=== PATIENT | female | born 1950 | race Caucasian/White ===

== ENCOUNTER → 2016-10-03 | Outpatient (CLI) | payer OTHER ==
--- NOTE | 2016-10-03 13:47 | MR ---
EXAMINATION TYPE: MR cspine/lspine wo con DATE OF EXAM: 10/03/2016 COMPARISON: NONE HISTORY: 66-year-old female with neck and low back pain. Cervicalgia lumbago TECHNIQUE: Multiplanar, multisequence imaging of the cervical followed by the lumbar spine is perform ed without IV contrast. FINDINGS: CERVICAL SPINE: No craniocervical junction abnormality, predental space widening, or prevertebral soft tissue swellin g. No suspicious bone marrow replacement. There is reversal of the normal cervical lordosis with a multilevel uncovertebral joint and facet deg enerative changes especially in the mid to lower cervical spine. Multilevel ligamentum flavum thickening is also noted. There is advanced disc/endplate degenerative change at C5-C6 and C6-C7 with disc height loss, endplat e irregularity, Modic type III sclerotic endplate change, disc osteophyte complex formation. There is grade 1 retrolisthesis at both C5-C6 and C6-C7. At C2-C3, minimal posterior bulging disc and mild facet arthropathy without canal or foraminal stenos is. At C3-C4, there is facet arthropathy and minimal posterior disc bulge without significant canal or fo raminal stenosis. At C4-C5, mild facet degenerative change without significant canal or foraminal stenosis. At C5-C6, there is grade 1 retrolisthesis with broad-based disc osteophyte complex contiguous with un covertebral joint arthropathy. Bilateral facet arthropathy and ligamentum flavum thickening is also p resent. Changes result in moderate spinal canal stenosis with abutment of both the dorsal and ventral cord and ventral cord indentation. There is moderate to severe left neuroforaminal stenosis. At C6-C7, similar changes are present with moderate left and mild right neuroforaminal stenosis is mo derate spinal canal stenosis with abutment of both the dorsal and ventral cord. At C7-T1, broad-based posterior disc bulge with facet arthropathy. No significant canal or foraminal stenosis. At T1-T2, and this posterior disc bulge with facet arthropathy. Additional ligamentum flavum thickeni ng. There is mild to moderate narrowing of the spinal canal. No significant cord abutment or cord def ormation. There is moderate right greater than left neuroforaminal stenosis. Tiny subcentimeter T2 hyperintense nodule within the left thyroid lobe. No prevertebral or paraverteb ral soft tissue abnormality seen. LUMBAR SPINE: Gentle degenerated rightward curvature. Vertebral body heights are preserved and alignment is maintai patricia. Moderately advanced disc/endplate degenerative change particularly from L3 through S1 levels with a s ome edematous Modic type I endplate change noted. Bulging disks at multiple levels. No suspicious bone marrow replacement. Hypertrophic facet arthropathy mid to lower lumbar spine with ligamentum flavum thickening. Conus medullaris is normal. Multilocular cyst measuring 1.9 cm incidentally seen within the mid liver. At T12-L1, no spinal canal or neural foraminal stenosis. At L1-L2, the spinal canal or neural foraminal stenosis. At L2-L3, there is broad-based disc bulge with a ligamentum flavum thickening causing mild spinal can al stenosis and mild bilateral neuroforaminal stenosis. At L3-L4, there is diffuse disc bulge with hypertrophic facet arthropathy and ligamentum flavum thick ening. Changes result in mild spinal canal stenosis, and left lateral recess stenosis. There may be i mpingement of the traversing left L4 nerve root. Additional moderate left and [id number] right neuroforaminal stenosis. At L4-L5, there is large broad-based disc protrusion, hypertrophic facet arthropathy, and marked liga mentum flavum thickening. Changes result in severe spinal canal stenosis with moderate bilateral neur oforaminal stenosis. Bilateral lateral recess stenosis probably impinging both traversing L5 nerve ro ots. At L5-S1, there is bulging disc with right lateral disc osteophyte complex. Facet arthropathy with li gamentum flavum thickening. No significant spinal canal stenosis. There is a severe right and mild-to -moderate left neuroforaminal stenosis. Lateral disc osteophyte complex may impinge the extraforamina l right L5 nerve root as well. There is lateral recess stenosis with abutment of the traversing right S1 nerve root. COMBINED IMPRESSION: CERVICAL SPINE: 1. MODERATE TO ADVANCED SPONDYLOTIC CHANGE PARTICULARLY AT C5-C6 AND C6-C7 WHERE THERE IS ADDITIONAL LIGAMENTUM FLAVUM THICKENING AND GRADE 1 RETROLISTHESES CAUSING MODERATE SPINAL CANAL STENOSES. THERE IS ABUTMENT OF BOTH THE DORSAL AND VENTRAL CORD AT THESE LEVELS WITH PROMINENT VENTRAL CORD INDENTAT ION AT C5-C6 BUT NO [place] CORD COMPRESSION OR DISCRETE MYELOPATHIC CORD SIGNAL CHANGE. 2. AT C5-C6, CHANGES RESULT IN MODERATE TO SEVERE LEFT NEUROFORAMINAL STENOSIS, MODERATE ON THE LEFT AT C6/C7. 3. DEGENERATIVE CHANGES CAUSE MILD SPINAL CANAL STENOSIS AT T1-T2 WITH MODERATE RIGHT GREATER THAN LE FT NEUROFORAMINAL STENOSIS. LUMBAR SPINE: 1. DEGENERATIVE DISC/ENDPLATE DEGENERATIVE CHANGE FROM L3 THROUGH S1 LEVELS WITH ASSOCIATED EDEMATOUS MODIC TYPE I ENDPLATE CHANGE. 2. DISC HERNIATIONS, HYPERTROPHIC FACET ARTHROPATHY, and LIGAMENTUM FLAVUM THICKENING AT THESE LEVELS WELL. THIS CONTRIBUTES TO SEVERE SPINAL CANAL STENOSIS AT L4-L5 AND MILD AT L2-L3 AND L3-L4. 3. SEVERE RIGHT NEUROFORAMINAL STENOSIS AT L5-S1, MODERATE ON THE LEFT AT L3-L4. LATERAL RECESS STENO SIS FROM L3 THROUGH S1 LEVELS. 4. RIGHT LATERAL DISC OSTEOPHYTE COMPLEX AT L5-S1 MAY IMPINGE THE EXTRAFORAMINAL RIGHT L5 NERVE ROOT.
== END | disposition home or self-care (01) ==
LOC: RADMRIMAIN 10:53
PROVIDERS: ATTEND Psychiatry & Neurology Neurology
DX: M48.06 Spinal stenosis, lumbar region (principal); M99.73 Connective tissue and disc stenosis of intervertebral foramina of lumbar region; M51.37 Other intervertebral disc degeneration, lumbosacral region; M51.26 Other intervertebral disc displacement, lumbar region; M25.78 Osteophyte, vertebrae; M46.06 Spinal enthesopathy, lumbar region; M48.02 Spinal stenosis, cervical region; M99.71 Connective tissue and disc stenosis of intervertebral foramina of cervical region; M43.12 Spondylolisthesis, cervical region; M47.812 Spondylosis without myelopathy or radiculopathy, cervical region
CPT/HCPCS: 72141; 72148

== ENCOUNTER 2016-11-18 08:58 | Day surgery (SDC) | payer MEDICARE, OTHER ==
[2016-11-17 10:53] VITALS: BMI 16.9
[~2016-11-18 08:58] MED LIST: LACTATED RINGERS 1,000 ML IV SCH
[2016-11-18 09:08] VITALS: RESP 18; TEMP 98.3
[2016-11-18] MEDS ORDERED: LIDOCAINE 1% 20 ML VIAL (10MG/ML) FOR IV START INTRADERMA ONE (09:09)
[2016-11-18] MEDS ORDERED: LACTATED RINGERS 1,000 ML IV ONE ×2 (09:09)
[2016-11-18] MEDS ORDERED: PROPOFOL 10 MG/ML 20 ML VIAL IV ONE (09:57)
--- NOTE | 2016-11-18 10:27 | P.PCN ---
Date of Procedure: 11/18/16 Preoperative Diagnosis: Postoperative Diagnosis: Procedure(s) Performed: Procedure: Esophagogastroduodenoscopy and biopsy. Preoperative diagnosis: Dysphagia and weight loss. Postoperative diagnosis: 1. No obvious esophagitis or complicated reflux disease. 2. Antral gastritis with multiple ulcers but no bleeding or gastric outlet obstruction. 3. Biopsies obtained from the duodenum, antrum and esophagus. Preparation sedation: Were provided by anesthesia. Brief clinical history: The patient is a 66-year-old female who is referred for this evaluation because of progressive dysphagia over the last year. She has history of acid reflux and on her upper endoscopy in September 2012 she had evidence of chronic esophagitis on biopsies. At that time she was having dysphagia as well and she had no obvious endoscopic abnormalities. The patient apparently has lost around 30-40 pounds over the last 3 years or so. She also indicated that she had esophageal dilations many years ago. She does have history of reflux and is maintained on Prilosec 40 mg daily. Procedure: With the patient on her left lateral decubitus position and after informed consent and adequate sedation, I passed the Olympus-GIF 160 video upper endoscope through the cricopharyngeus down the esophagus. GE junction was around 40 cm from the incisors and there was no definite hiatal hernia. The endoscope was then passed into the stomach which was insufflated with air and inspected in detail including the retroflex view in the cardia. The endoscope was then passed through the pylorus into the duodenum. Pyloric channel, duodenal bulb, post bulbar area and descending duodenum appeared within normal limits. The antrum showed mottling and erythema and there was a 1.5 cm deep ulcer along the angularis and couple other smaller ulcers in the antrum across from the angularis. No bleeding or gastric outlet obstruction. The esophagus did not show any obvious erosions, ulcers, strictures or Gutiérrez' s esophagus. I obtained biopsies from the duodenum, antrum and esophagus then the endoscope was withdrawn. No dilation was indicated. The patient tolerated the procedure well. Plan: The patient was reassured. Will await biopsy results. I would consider esophageal motility study if she continues to have issues with dysphagia in the absence of obvious finding on this exam today. I will keep you updated on her progress. She will follow-up with you as planned. Implants: Indications for Procedure: Operative Findings: Description of Procedure:
[2016-11-18 10:50] VITALS: BP 122/76; PULSE 83
== END 2016-11-18 11:07 | disposition home or self-care (01) ==
LOC: ORWHC2ENDO 08:58
DX: K29.50 Unspecified chronic gastritis without bleeding (principal); K25.9 Gastric ulcer, unspecified as acute or chronic, without hemorrhage or perforation; K21.9 Gastro-esophageal reflux disease without esophagitis; R63.4 Abnormal weight loss; M19.90 Unspecified osteoarthritis, unspecified site; F32.9 Major depressive disorder, single episode, unspecified; M48.00 Spinal stenosis, site unspecified; Z79.899 Other long term (current) drug therapy; Z79.891 Long term (current) use of opiate analgesic; Z88.0 Allergy status to penicillin; Z72.0 Tobacco use
CPT/HCPCS: 88305; 88342; 43239; J2704

== ENCOUNTER 2017-08-16 14:07 | Emergency (ER) | payer MEDICARE, OTHER ==
[2017-08-16] MEDS ORDERED: SODIUM CHLORIDE 0.9% 1,000 ML IV STA (14:33)
[2017-08-16] MEDS ORDERED: ONDANSETRON 4 MG/2 ML VIAL IVP STA (14:33)
[2017-08-16] MEDS ORDERED: RX INFO: IV CONTRAST WAS GIVEN 1 EACH MISC MISCELLANE PRN (14:33)
[2017-08-16] MEDS ORDERED: MORPHINE SULFATE 4 MG/ML SYRINGE IVP STA (14:33)
--- NOTE | 2017-08-16 14:35 | ED ---
General Adult HPI - General Chief complaint: Abdominal Pain Stated complaint: Abd Pain Time Seen by Provider: 08/16/17 14:23 Source: patient, RN notes reviewed Mode of arrival: ambulatory Limitations: no limitations - History of Present Illness Initial comments: Patient 67-year-old female who presents emergency room today with a chief complaint of abdominal pain over the last month. She does admit that she's had increased diarrhea. She states anytime she eats or drinks feels like it's going straight through her. She admits to approximately 10 episodes of diarrhea today. Patient does admit that she was diagnosed with peptic ulcer approximately a year ago. She states she does have a follow-up appointment with Dr. White coming up this next week. She states she has been expressing abdominal pain throughout abdomen. She states it's a constant sharp pain. Patient does admit that she's been under a lot of stress over the last year. She states been dealing with things at home. She does have difficult time following up with the specialist. Patient denies any other symptoms at this time. Patient denies any recent fever, chills, shortness of breath, chest pain, back pain, numbness or tingling, dysuria or hematuria, constipation, headaches or visual changes, or any other complaints. - Related Data Home Medications Medication Instructions Recorded Confirmed Cetirizine HCl [Zyrtec] 10 mg PO HS 11/17/16 11/17/16 Cholecalciferol [Vitamin D3] 5,000 unit PO DAILY 11/17/16 11/17/16 Cyanocobalamin [Vitamin B-12] 500 mcg PO DAILY 11/17/16 11/17/16 Fluticasone Propionate 1 - 2 spray EA NOSTRIL DAILY 11/17/16 11/17/16 Gabapentin [Neurontin] 600 mg PO TID 11/17/16 11/17/16 HYDROcodone/APAP 7.5-325MG [Pool 1 tab PO BID 11/17/16 11/17/16 7.5-325] Meclizine [Antivert] 25 mg PO Q6H PRN 11/17/16 11/17/16 Naproxen [Naproxen] 500 mg PO BID 11/17/16 11/17/16 Omeprazole [PriLOSEC] 40 mg PO DAILY 11/17/16 11/17/16 Potassium 595 mg PO DAILY 11/17/16 11/17/16 Venlafaxine HCl [Venlafaxine HCl] 150 mg PO DAILY 11/17/16 11/17/16 Previous Rx's Medication Instructions Recorded Ondansetron Odt [Zofran ODT] 4 mg PO Q8HR PRN #20 tab 08/16/17 Allergies Allergy/AdvReac Type Severity Reaction Status Date / Time Penicillins Allergy Itching Verified 08/16/17 14:18 Review of Systems ROS Statement: Those systems with pertinent positive or pertinent negative responses have been documented in the HPI. ROS Other: All systems not noted in ROS Statement are negative. Past Medical History Past Medical History: GERD/Reflux, Musculoskeletal Disorder, Osteoarthritis (OA) Additional Past Medical History / Comment(s): VERTIGO, SPINAL STENOSIS, MULT LEVELS, NECK & LOWER BACK; DDD. peptic ulcer History of Any Multi-Drug Resistant Organisms: None Reported Past Surgical History: Appendectomy, Orthopedic Surgery Additional Past Surgical History / Comment(s): EGD'S. COLONOSCOPY. RECONSTRUCTION JAW. JESSICA BUNIONECTOMY. TENDON REPAIR RT HAND. Past Anesthesia/Blood Transfusion Reactions: No Reported Reaction Past Psychological History: No Psychological Hx Reported Smoking Status: Current every day smoker Past Alcohol Use History: None Reported Past Drug Use History: None Reported - Past Family History Sister(s) Family Medical History: Cancer General Exam - General Exam Comments Initial Comments: General: The patient is awake and alert, in no distress, and does not appear acutely ill. Eye: Pupils are equal, round and reactive to light, extra-ocular movements are intact. No nystagmus. There is normal conjunctiva bilaterally. No signs of icterus. Ears, nose, mouth and throat: There are moist mucous membranes and no oral lesions. Neck: The neck is supple, there is no tenderness or JVD. Cardiovascular: There is a regular rate and rhythm. No murmur, rub or gallop is appreciated. Respiratory: Lungs are clear to auscultation, respirations are non-labored, breath sounds are equal. No wheezes, stridor, rales, or rhonchi. Gastrointestinal: Soft on palpation. Patient does have mild tenderness diffusely throughout all quadrants. No rebound tenderness. No guarding. No CVA tenderness. Musculoskeletal: Normal ROM, no tenderness. Strength 5/5. Sensation intact. Pulses equal bilaterally 2+. Neurological: A&O x 3. CN II-XII intact, There are no obvious motor or sensory deficits. Coordination appears grossly intact. Speech is normal. Skin: Skin is warm and dry and no rashes or lesions are noted. Psychiatric: Cooperative, appropriate mood & affect, normal judgment. Limitations: no limitations Course Vital Signs 08/16/17 08/16/17 14:15 16:31 Temperature 99.1 F Pulse Rate 110 H 106 H Respiratory 18 18 Rate Blood Pressure 156/73 134/68 O2 Sat by Pulse 100 96 Oximetry Medical Decision Making - Medical Decision Making Patient reexamined at this time shows no signs of distress she is resting comfortable. Does admit to improvement here in emergency room. Her labs been reviewed does show 14,000 white count. She has had symptoms of nausea diarrhea. Patient's hemoglobin 9.8. Remaining labs been reviewed. Patient's CT the abdomen and pelvis shows no acute abnormalities to account for the patient's symptoms. She admits that she's had some diarrhea over the last month with nausea. Unable to give stool sample here in emergency room. Denies any travel. Patient will be given a prescription for stool studies to go home with. She does have a follow-up appointment with GI specialist in 3 days. She is advised to continue her previously prescribed medication of Prilosec. Advised return for any other concerns. - Lab Data Result diagrams: 08/16/17 14:55 08/16/17 14:55 Lab Results 08/16/17 08/16/17 08/16/17 Range/Units 14:55 14:55 14:55 WBC 14.8 H (3.8-10.6) k/uL RBC 3.64 L (3.80-5.40) m/uL Hgb 9.2 L (11.4-16.0) gm/dL Hct 29.3 L (34.0-46.0) % MCV 80.4 (80.0-100.0) fL MCH 25.2 (25.0-35.0) pg MCHC 31.3 (31.0-37.0) g/dL RDW 15.7 H (11.5-15.5) % Plt Count 382 (150-450) k/uL Neutrophils % 80 % Lymphocytes % 11 % Monocytes % 5 % Eosinophils % 2 % Basophils % 1 % Neutrophils # 11.8 H (1.3-7.7) k/uL Lymphocytes # 1.7 (1.0-4.8) k/uL Monocytes # 0.8 (0-1.0) k/uL Eosinophils # 0.3 (0-0.7) k/uL Basophils # 0.1 (0-0.2) k/uL Hypochromasia Moderate PT 10.0 (9.0-12.0) sec INR 1.0 (<1.2) APTT 22.9 (22.0-30.0) sec Sodium 141 (137-145) mmol/L Potassium 4.5 (3.5-5.1) mmol/L Chloride 101 (98-107) mmol/L Carbon Dioxide 28 (22-30) mmol/L Anion Gap 12 mmol/L BUN 32 H (7-17) mg/dL Creatinine 0.80 (0.52-1.04) mg/dL Est GFR (CKD-EPI)AfAm 90 (>60 ml/min/1.73 sqM) Est GFR (CKD-EPI)NonAf 78 (>60 ml/min/1.73 sqM) Glucose 95 (74-99) mg/dL Calcium 10.5 H (8.4-10.2) mg/dL Total Bilirubin 0.2 (0.2-1.3) mg/dL AST 28 (14-36) U/L ALT 38 (9-52) U/L Alkaline Phosphatase 76 (38-126) U/L Total Protein 6.0 L (6.3-8.2) g/dL Albumin 3.8 (3.5-5.0) g/dL Amylase 40 (30-110) U/L Lipase 42 (23-300) U/L Urine Color Urine Appearance (Clear) Urine pH (5.0-8.0) Ur Specific Jayess (1.001-1.035) Urine Protein (Negative) Urine Glucose (UA) (Negative) Urine Ketones (Negative) Urine Blood (Negative) Urine Nitrite (Negative) Urine Bilirubin (Negative) Urine Urobilinogen (<2.0) mg/dL Ur Leukocyte Esterase (Negative) Urine RBC (0-5) /hpf Urine WBC (0-5) /hpf Urine Mucus (None) /hpf 08/16/17 Range/Units 15:00 WBC (3.8-10.6) k/uL RBC (3.80-5.40) m/uL Hgb (11.4-16.0) gm/dL Hct (34.0-46.0) % MCV (80.0-100.0) fL MCH (25.0-35.0) pg MCHC (31.0-37.0) g/dL RDW (11.5-15.5) % Plt Count (150-450) k/uL Neutrophils % % Lymphocytes % % Monocytes % % Eosinophils % % Basophils % % Neutrophils # (1.3-7.7) k/uL Lymphocytes # (1.0-4.8) k/uL Monocytes # (0-1.0) k/uL Eosinophils # (0-0.7) k/uL Basophils # (0-0.2) k/uL Hypochromasia PT (9.0-12.0) sec INR (<1.2) APTT (22.0-30.0) sec Sodium (137-145) mmol/L Potassium (3.5-5.1) mmol/L Chloride (98-107) mmol/L Carbon Dioxide (22-30) mmol/L Anion Gap mmol/L BUN (7-17) mg/dL Creatinine (0.52-1.04) mg/dL Est GFR (CKD-EPI)AfAm (>60 ml/min/1.73 sqM) Est GFR (CKD-EPI)NonAf (>60 ml/min/1.73 sqM) Glucose (74-99) mg/dL Calcium (8.4-10.2) mg/dL Total Bilirubin (0.2-1.3) mg/dL AST (14-36) U/L ALT (9-52) U/L Alkaline Phosphatase (38-126) U/L Total Protein (6.3-8.2) g/dL Albumin (3.5-5.0) g/dL Amylase (30-110) U/L Lipase (23-300) U/L Urine Color Light Yellow Urine Appearance Clear (Clear) Urine pH 6.0 (5.0-8.0) Ur Specific Jayess 1.013 (1.001-1.035) Urine Protein Negative (Negative) Urine Glucose (UA) Negative (Negative) Urine Ketones Negative (Negative) Urine Blood Trace H (Negative) Urine Nitrite Negative (Negative) Urine Bilirubin Negative (Negative) Urine Urobilinogen <2.0 (<2.0) mg/dL Ur Leukocyte Esterase Trace H (Negative) Urine RBC 2 (0-5) /hpf Urine WBC 2 (0-5) /hpf Urine Mucus Rare H (None) /hpf Disposition Clinical Impression: Acute diarrhea, Abdominal pain Disposition: HOME SELF-CARE Condition: Good Instructions: Abdominal Pain (ED) Additional Instructions: Please follow-up with your family doctor and GI specialist as discussed. Please have stool sample dropped at the lab to run further testing. Please return to emergency room for any other concerns. Prescriptions: Ondansetron Odt [Zofran ODT] 4 mg PO Q8HR PRN #20 tab PRN Reason: Nausea Is patient prescribed a controlled substance at d/c from ED?: No Referrals: Vicki Styles MD [Primary Care Provider] - 1-2 days Time of Disposition: 17:19
[2017-08-16 15:21] LABS: Albumin 3.8 g/dL (3.5-5.0); Calcium 10.5 mg/dL (8.4-10.2); Potassium 4.5 mmol/L (3.5-5.1); Total Bilirubin 0.2 mg/dL (0.2-1.3)
[2017-08-16 15:25] LABS: Appearance,Urine Clear (Clear); Bilirubin,Urine Negative (Negative); Blood,Urine Trace (Negative); Color,Urine Light Yellow; Glucose,Urine (UA) Negative (Negative); Ketones,Urine Negative (Negative); Leukocyte Esterase,Urine Trace (Negative); Mucus,Urine Rare /hpf; Nitrite,Urine Negative (Negative); Protein,Urine Negative (Negative); RBC,Urine 2 /hpf (0-5); Specific Gravity,Urine 1.013 (1.001-1.035); Urobilinogen,Urine <2.0 mg/dL (<2.0); WBC,Urine 2 /hpf (0-5)
[2017-08-16 15:30] LABS: Partial Thromboplastin Time 22.9 sec (22.0-30.0)
[2017-08-16 15:32] LABS: Basophils # (A) 0.1 k/uL (0-0.2); Basophils % (A) 1 %; Eosinophils # (A) 0.3 k/uL (0-0.7); Eosinophils % (A) 2 %; HCT 29.3 % (34.0-46.0); HGB 9.2 gm/dL (11.4-16.0); Hypochromasia Moderate; Lymphocytes # (A) 1.7 k/uL (1.0-4.8); Lymphocytes % (A) 11 %; MCH 25.2 pg (25.0-35.0); MCHC 31.3 g/dL (31.0-37.0); MCV 80.4 fL (80.0-100.0); Monocytes # (A) 0.8 k/uL (0-1.0); Monocytes % (A) 5 %; Neutrophils # (A) 11.8 k/uL (1.3-7.7); Neutrophils % (A) 80 %; Platelet Count 382 k/uL (150-450); RBC 3.64 m/uL (3.80-5.40); RDW 15.7 % (11.5-15.5); WBC 14.8 k/uL (3.8-10.6)
--- NOTE | 2017-08-16 16:19 | CT ---
EXAMINATION TYPE: CT abdomen pelvis w con DATE OF EXAM: 08/16/2017 COMPARISON: 05/04/2014 INDICATION: Pain and diarrhea for 1 month DLP: 314.5 mGycm, Automated exposure control for dose reduction was used. CONTRAST: 100 mL of Isovue 300. Study performed without Oral Contrast TECHNIQUE: Axial images were obtained from above the diaphragm to the pubic rami in the axial plane a t 5 mm thick sections. Reconstructed images are reviewed on the computer in the coronal plane. FINDINGS: Limited CT sections are obtained the lung bases. The lung bases are clear. CT ABDOMEN: Axial bowel fat causes limitation in evaluation. Liver: Multiple hypodense areas are within the superior right lobe liver compatible with multiple sma ll simple cysts. These are present previously. Spleen: Normal Pancreas: Normal Adrenal glands: The adrenal glands are normal. Gallbladder: Normal Kidneys: No masses are evident. No hydronephrosis is present. No cysts are present. Delayed images were obtained through the kidneys, which remain unremarkable. Aorta: Vascular calcification is within the aorta. Inferior vena cava: Normal. CT PELVIS: Bowel loop evaluation is limited due to lack oral contrast. There are scattered air fluid filled loop s of bowel. The pelvic small bowel loops may contain fluid. Some diverticular changes are noted withi n the sigmoid colon. Appendix: Not identified Urinary bladder: Normal. Genitourinary structures: Uterus and ovaries are not identified. Osseous structures: No suspicious lytic or sclerotic lesions. Facet degenerative changes and degenera tive disc changes are within the lower lumbar spine. IMPRESSIONS: 1. Nonspecific abdomen loops of bowel. Consider mild ileus. Exam somewhat limited due to lack of ora l contrast and bowel fat.
[2017-08-16 17:40] VITALS: BP 127/70; PULSE 98; RESP 16; TEMP 100.3
== END 2017-08-16 17:51 | disposition home or self-care (01) ==
LOC: EC 14:07
DX: R10.84 Generalized abdominal pain (principal); R19.7 Diarrhea, unspecified; R11.0 Nausea; K21.9 Gastro-esophageal reflux disease without esophagitis; M19.90 Unspecified osteoarthritis, unspecified site; F17.200 Nicotine dependence, unspecified, uncomplicated; Z87.11 Personal history of peptic ulcer disease; Z90.49 Acquired absence of other specified parts of digestive tract; Z98.890 Other specified postprocedural states; Z79.1 Long term (current) use of non-steroidal anti-inflammatories (NSAID); Z79.51 Long term (current) use of inhaled steroids; Z79.899 Other long term (current) drug therapy; Z88.0 Allergy status to penicillin
CPT/HCPCS: 99284; 96374; 96375; 96361; 36415; 80053; 82150; 83690; 85025; 85610; 85730; 81001; 74177; J2270; J2405; Q9967

== ENCOUNTER 2017-08-17 10:46 | Inpatient (IN) | payer MEDICARE, OTHER ==
[2017-08-17] MEDS ORDERED: SODIUM CHLORIDE 0.9% 1,000 ML IV STA (11:43)
[2017-08-17] MEDS ORDERED: PANTOPRAZOLE 40 MG/10 ML VIAL IVP STA (11:43)
[2017-08-17] MEDS ORDERED: ONDANSETRON 4 MG/2 ML VIAL IVP STA (11:43)
[2017-08-17] MEDS ORDERED: DICYCLOMINE 10 MG/ML 2 ML AMP IM STA (11:43)
--- NOTE | 2017-08-17 12:20 | ED ---
General Adult HPI - General Chief complaint: GI Bleed Stated complaint: Abd Pain Time Seen by Provider: 08/17/17 11:34 Source: patient, family, RN notes reviewed Mode of arrival: ambulatory Limitations: no limitations - History of Present Illness Initial comments: Patient is a pleasant 67-year-old female presenting to the emergency department with complaints of abdominal discomfort. Patient has had some symptoms for months however has been worse over the past one month. Patient did have endoscopy done back in January however had appointments canceled on her and has not had a chance to follow up yet. Patient has been having diarrhea for the past couple of weeks, up to 10 times a day. Patient has had dark stool since yesterday. Patient feels nauseated. Patient has decreased appetite and significantly decreased oral intake. Pain is diffuse. No fevers. No vomiting. - Related Data Home Medications Medication Instructions Recorded Confirmed Cetirizine HCl [Zyrtec] 10 mg PO HS 11/17/16 11/17/16 Cholecalciferol [Vitamin D3] 5,000 unit PO DAILY 11/17/16 11/17/16 Cyanocobalamin [Vitamin B-12] 500 mcg PO DAILY 11/17/16 11/17/16 Fluticasone Propionate 1 - 2 spray EA NOSTRIL DAILY 11/17/16 11/17/16 Gabapentin [Neurontin] 600 mg PO TID 11/17/16 11/17/16 HYDROcodone/APAP 7.5-325MG [[place] 1 tab PO BID 11/17/16 11/17/16 7.5-325] Meclizine [Antivert] 25 mg PO Q6H PRN 11/17/16 11/17/16 Naproxen [Naproxen] 500 mg PO BID 11/17/16 11/17/16 Omeprazole [PriLOSEC] 40 mg PO DAILY 11/17/16 11/17/16 Potassium 595 mg PO DAILY 11/17/16 11/17/16 Venlafaxine HCl [Venlafaxine HCl] 150 mg PO DAILY 11/17/16 11/17/16 Previous Rx's Medication Instructions Recorded Ondansetron Odt [Zofran ODT] 4 mg PO Q8HR PRN #20 tab 08/16/17 Allergies Allergy/AdvReac Type Severity Reaction Status Date / Time Penicillins Allergy Itching Verified 08/17/17 10:57 Review of Systems ROS Statement: Those systems with pertinent positive or pertinent negative responses have been documented in the HPI. ROS Other: All systems not noted in ROS Statement are negative. Constitutional: Denies: fever Eyes: Denies: eye pain ENT: Denies: ear pain Respiratory: Denies: cough Cardiovascular: Denies: chest pain Endocrine: Reports: fatigue Gastrointestinal: Reports: abdominal pain, nausea, diarrhea. Denies: vomiting Genitourinary: Denies: dysuria Musculoskeletal: Denies: back pain Skin: Denies: rash Neurological: Denies: headache Past Medical History Past Medical History: GERD/Reflux, Musculoskeletal Disorder, Osteoarthritis (OA) Additional Past Medical History / Comment(s): VERTIGO, SPINAL STENOSIS, MULT LEVELS, NECK & LOWER BACK; DDD. peptic ulcer History of Any Multi-Drug Resistant Organisms: None Reported Past Surgical History: Appendectomy, Orthopedic Surgery Additional Past Surgical History / Comment(s): EGD'S. COLONOSCOPY. RECONSTRUCTION JAW. JESSICA BUNIONECTOMY. TENDON REPAIR RT HAND. Past Anesthesia/Blood Transfusion Reactions: No Reported Reaction Past Psychological History: No Psychological Hx Reported Smoking Status: Current every day smoker Past Alcohol Use History: None Reported Past Drug Use History: None Reported - Past Family History Sister(s) Family Medical History: Cancer General Exam Limitations: no limitations General appearance: alert, in no apparent distress Head exam: Present: atraumatic Eye exam: Present: normal appearance, PERRL ENT exam: Present: normal oropharynx Neck exam: Present: normal inspection Respiratory exam: Present: normal lung sounds bilaterally Cardiovascular Exam: Present: tachycardia GI/Abdominal exam: Present: soft, tenderness (Mild diffuse tenderness, moderate tenderness in the epigastric region.), guarding (Mild epigastric guarding), hyperactive bowel sounds. Absent: distended, rebound, rigid, pulsatile mass Extremities exam: Present: normal inspection Neurological exam: Present: alert Psychiatric exam: Present: normal affect, normal mood Skin exam: Present: normal color Course Vital Signs 08/17/17 10:52 Temperature 98.5 F Pulse Rate 77 Respiratory 18 Rate Blood Pressure 110/87 O2 Sat by Pulse 97 Oximetry - Reevaluation(s) Reevaluation #1: 08/17/17 11:46 Computed tomography scan done 08/16/2017 shows possible mild ileus. EKG Findings - EKG Comments: EKG Findings:: Sinus tachycardia at 119. DC 160. QRS 68. QT 3:30. QTC 464. Normal axis. LVH with repolarization change. Medical Decision Making - Medical Decision Making Patient reevaluated and updated. Dr. Leal has been paged for admission for Dr. hanna. - Lab Data Result diagrams: 08/17/17 12:18 08/17/17 12:18 Lab Results 08/17/17 08/17/17 08/17/17 Range/Units 12:18 12:18 12:18 WBC 15.7 H (3.8-10.6) k/uL RBC 3.51 L (3.80-5.40) m/uL Hgb 8.5 L (11.4-16.0) gm/dL Hct 28.2 L (34.0-46.0) % MCV 80.4 (80.0-100.0) fL MCH 24.1 L (25.0-35.0) pg MCHC 30.0 L (31.0-37.0) g/dL RDW 16.1 H (11.5-15.5) % Plt Count 388 (150-450) k/uL Neutrophils % 86 % Lymphocytes % 8 % Monocytes % 4 % Eosinophils % 0 % Basophils % 1 % Neutrophils # 13.5 H (1.3-7.7) k/uL Lymphocytes # 1.3 (1.0-4.8) k/uL Monocytes # 0.7 (0-1.0) k/uL Eosinophils # 0.1 (0-0.7) k/uL Basophils # 0.1 (0-0.2) k/uL Hypochromasia Slight Anisocytosis Slight Sodium 146 H (137-145) mmol/L Potassium 4.1 (3.5-5.1) mmol/L Chloride 106 (98-107) mmol/L Carbon Dioxide 27 (22-30) mmol/L Anion Gap 13 mmol/L BUN 33 H (7-17) mg/dL Creatinine 0.70 (0.52-1.04) mg/dL Est GFR (CKD-EPI)AfAm >90 (>60 ml/min/1.73 sqM) Est GFR (CKD-EPI)NonAf >90 (>60 ml/min/1.73 sqM) Glucose 103 H (74-99) mg/dL Calcium 9.8 (8.4-10.2) mg/dL Total Bilirubin 0.2 (0.2-1.3) mg/dL AST 20 (14-36) U/L ALT 31 (9-52) U/L Alkaline Phosphatase 70 (38-126) U/L Total Protein 5.9 L (6.3-8.2) g/dL Albumin 3.6 (3.5-5.0) g/dL Amylase 37 (30-110) U/L Lipase 27 (23-300) U/L Stool Occult Blood Positive H (Negative) - Radiology Data Radiology results: image reviewed (Abdominal x-ray shows no acute process) Disposition Clinical Impression: GI hemorrhage Disposition: ADMITTED IP TO THIS HOSP Is patient prescribed a controlled substance at d/c from ED?: No Referrals: Vicki Styles MD [Primary Care Provider] - 1-2 days Decision Time: 14:04
[2017-08-17 12:38] LABS: Anisocytosis Slight; Basophils # (A) 0.1 k/uL (0-0.2); Basophils % (A) 1 %; Eosinophils # (A) 0.1 k/uL (0-0.7); Eosinophils % (A) 0 %; HCT 28.2 % (34.0-46.0); HGB 8.5 gm/dL (11.4-16.0); Hypochromasia Slight; Lymphocytes # (A) 1.3 k/uL (1.0-4.8); Lymphocytes % (A) 8 %; MCH 24.1 pg (25.0-35.0); MCV 80.4 fL (80.0-100.0); Mean Platelet Volume 6.9; Monocytes # (A) 0.7 k/uL (0-1.0); Monocytes % (A) 4 %; Neutrophils # (A) 13.5 k/uL (1.3-7.7); Neutrophils % (A) 86 %; Platelet Count 388 k/uL (150-450); RBC 3.51 m/uL (3.80-5.40); RDW 16.1 % (11.5-15.5); WBC 15.7 k/uL (3.8-10.6)
[2017-08-17 12:48] LABS: ALT 31 U/L (9-52); AST 20 U/L (14-36); Albumin 3.6 g/dL (3.5-5.0); Alkaline Phosphatase 70 U/L (38-126); Amylase 37 U/L (30-110); Anion Gap 13 mmol/L; Blood Urea Nitrogen 33 mg/dL (7-17); Calcium 9.8 mg/dL (8.4-10.2); Carbon Dioxide 27 mmol/L (22-30); Chloride 106 mmol/L (98-107); Glucose 103 mg/dL (74-99); Lipase 27 U/L (23-300); Potassium 4.1 mmol/L (3.5-5.1); Sodium 146 mmol/L (137-145); Total Bilirubin 0.2 mg/dL (0.2-1.3); Total Protein 5.9 g/dL (6.3-8.2)
--- NOTE | 2017-08-17 12:59 | XR ---
EXAMINATION TYPE: XR KUB DATE OF EXAM: 08/17/2017 12:50 PM CLINICAL HISTORY: Abdominal pain with nausea TECHNIQUE: Single upright image of the abdomen is obtained. COMPARISON: None. FINDINGS: Scattered gas is seen in non-distended small bowel loops. Gas and fecal material is seen in non-distended colon. There is no visceromegaly, pneumoperitoneum, or abnormal calcification apprecia hank. The lung bases are clear and the osseous structures are intact. There is a dextroscoliosis of th e lumbar spine and moderate degenerative changes of the osseous structures. IMPRESSION: Nonobstructive bowel gas pattern.
[2017-08-17] MEDS ORDERED: NALOXONE 0.4 MG/ML 1 ML VIAL IV PRN (14:05)
[2017-08-17] MEDS ORDERED: ONDANSETRON 4 MG/2 ML VIAL IVP PRN (14:05)
[2017-08-17 14:14] LABS: INR 1.1 (<1.2); Partial Thromboplastin Time 22.4 sec (22.0-30.0); Prothrombin Time 10.5 sec (9.0-12.0)
[2017-08-17 15:31] VITALS: BMI 14.8
[2017-08-17] MEDS: SODIUM CHLORIDE 0.9% 1,000 ML IV SCH (16:26)
[2017-08-17 17:01] LABS: Appearance,Urine Clear (Clear); Bilirubin,Urine Negative (Negative); Blood,Urine Trace (Negative); Color,Urine Yellow; Glucose,Urine (UA) Negative (Negative); Ketones,Urine Trace (Negative); Leukocyte Esterase,Urine Small (Negative); Mucus,Urine Rare /hpf; Nitrite,Urine Negative (Negative); Protein,Urine Negative (Negative); RBC,Urine 2 /hpf (0-5); Specific Gravity,Urine 1.015 (1.001-1.035); Squamous Epithelial Cell,Urine <1 /hpf (0-4); Urobilinogen,Urine <2.0 mg/dL (<2.0); WBC,Urine 3 /hpf (0-5)
[2017-08-17] MEDS: MORPHINE SULFATE 4 MG/ML SYRINGE IV PRN (19:16)
[2017-08-17 19:25] LABS: Anisocytosis Slight; Basophils # (A) 0.1 k/uL (0-0.2); Basophils % (A) 1 %; Eosinophils # (A) 0.1 k/uL (0-0.7); Eosinophils % (A) 1 %; HCT 23.4 % (34.0-46.0); Hypochromasia Marked; Lymphocytes # (A) 1.9 k/uL (1.0-4.8); Lymphocytes % (A) 14 %; MCH 24.4 pg (25.0-35.0); MCHC 29.7 g/dL (31.0-37.0); MCV 82.2 fL (80.0-100.0); Monocytes # (A) 0.8 k/uL (0-1.0); Monocytes % (A) 5 %; Neutrophils # (A) 11.3 k/uL (1.3-7.7); Neutrophils % (A) 78 %; Platelet Count 309 k/uL (150-450); RBC 2.84 m/uL (3.80-5.40); RDW 16.1 % (11.5-15.5); WBC 14.4 k/uL (3.8-10.6)
[2017-08-17 19:28] LABS: Reticulocyte % 1.8 % (0.5-2.0)
[2017-08-18 02:28] LABS: Anisocytosis Slight; Basophils # (A) 0.1 k/uL (0-0.2); Basophils % (A) 1 %; Eosinophils # (A) 0.2 k/uL (0-0.7); Eosinophils % (A) 2 %; HCT 24.8 % (34.0-46.0); HGB 7.7 gm/dL (11.4-16.0); Hypochromasia Moderate; Lymphocytes # (A) 1.8 k/uL (1.0-4.8); Lymphocytes % (A) 15 %; MCH 25.9 pg (25.0-35.0); MCHC 30.9 g/dL (31.0-37.0); MCV 83.7 fL (80.0-100.0); Monocytes # (A) 0.6 k/uL (0-1.0); Monocytes % (A) 5 %; Neutrophils # (A) 9.2 k/uL (1.3-7.7); Neutrophils % (A) 76 %; Platelet Count 278 k/uL (150-450); RBC 2.96 m/uL (3.80-5.40); RDW 16.7 % (11.5-15.5); WBC 12.1 k/uL (3.8-10.6)
[2017-08-18] MEDS: SODIUM CHLORIDE 0.9% 1,000 ML IV SCH ×2 (06:20→14:44)
[2017-08-18] MEDS: MORPHINE SULFATE 4 MG/ML SYRINGE IV PRN ×2 (07:32→19:02)
[2017-08-18] MEDS: PANTOPRAZOLE 40 MG/10 ML VIAL IV SCH (08:13)
[2017-08-18 08:30] LABS: Anisocytosis Slight; Basophils # (A) 0.1 k/uL (0-0.2); Basophils % (A) 1 %; Eosinophils # (A) 0.2 k/uL (0-0.7); Eosinophils % (A) 2 %; HCT 28.9 % (34.0-46.0); HGB 8.5 gm/dL (11.4-16.0); Hypochromasia Marked; Lymphocytes # (A) 1.4 k/uL (1.0-4.8); Lymphocytes % (A) 12 %; MCH 25.3 pg (25.0-35.0); MCHC 29.3 g/dL (31.0-37.0); MCV 86.3 fL (80.0-100.0); Mean Platelet Volume 7.3; Monocytes # (A) 0.6 k/uL (0-1.0); Monocytes % (A) 5 %; Neutrophils # (A) 9.3 k/uL (1.3-7.7); Neutrophils % (A) 80 %; Platelet Count 278 k/uL (150-450); RBC 3.35 m/uL (3.80-5.40); RDW 16.8 % (11.5-15.5); WBC 11.6 k/uL (3.8-10.6)
--- NOTE | 2017-08-18 09:22 | P.CONS ---
History of Present Illness - Reason for Consult Consult date: 08/18/17 GI bleeding Requesting physician: Julio Leal - History of Present Illness 67-year-old female past medical history of dysphagia, chronic esophagitis, esophageal dilations, GERD, admitted with acute abdominal pain with multiple daily episodes of black-colored diarrhea 2 weeks intermittent nausea no emesis. Abdominal pain is located mostly in the midepigastric region radiating down midline. She takes Naprosyn 500 mg twice daily for the last 2-3 years. Admission hemoglobin 8.5 decreased to 7.0. Received 1 unit of blood. Current hemoglobin 8.5. MCV 80. Platelets 388. INR 1.1. BUN 33. Creatinine 0.7. Stool occult blood positive. Stool lactoferrin negative. Giardia negative. Hemoglobin April 2014 was 12.7. No EtOH, aspirin products, or additional antiplatelet or NSAID usage except Naprosyn 500 mg twice daily. Endoscopic history: EGD October 2016 for evaluation of dysphagia and weight loss with no evidence of esophagitis or, care reflux disease. Antral gastritis with multiple ulcers but no bleeding or gastric outlet obstruction. Colonoscopy 2016 to her memory unremarkable. KUB nonobstructive bowel gas pattern. CT abdomen and pelvis 2 days ago reported nonspecific abdominal loops of bowel Ross for mild ileus. Exam limited due to lack of oral contrast and bowel fat. Review of Systems Constitutional: Denies fever, chills, sweats, weight gain, or loss. HEENT: Negative for migraines, blurred vision or loss, earaches, drainage, tinnitus, oral mucosal lesions, dysphagia, or odynophagia. Reticulocyte vertigo. CARDIAC: Negative for chest pain, arrhythmias, or palpitation. RESPIRATORY: Negative for shortness of breath, hemoptysis, cough, or sputum production. GI: See HPI for pertinent findings. : Negative for hematuria, urgency, frequency, polyuria, or dysuria. GYNc: Negative vaginal discharge. MUSCULOSKELETAL: Chronic arthritis spinal stenosis osteoarthritis history.. NEUROLOGIC: Negative for stroke or TIA. ENDOCRINE: Negative for thyroid problems. SKIN: Negative for rash or itching. PSYCHIATRIC: Negative history for depression and anxiety Past Medical History Past Medical History: GERD/Reflux, Musculoskeletal Disorder, Osteoarthritis (OA) Additional Past Medical History / Comment(s): VERTIGO, SPINAL STENOSIS, MULT LEVELS, NECK & LOWER BACK; DDD. peptic ulcer History of Any Multi-Drug Resistant Organisms: None Reported Past Surgical History: Appendectomy, Orthopedic Surgery Additional Past Surgical History / Comment(s): EGD'S (2016) BARRIUM SWALLOW (2016) COLONOSCOPY (2015). RECONSTRUCTION JAW. JESSICA BUNIONECTOMY. TENDON REPAIR RT HAND. Past Anesthesia/Blood Transfusion Reactions: No Reported Reaction Past Psychological History: No Psychological Hx Reported Smoking Status: Current every day smoker Past Alcohol Use History: None Reported Additional Past Alcohol Use History / Comment(s): SMOKER ON/OFF SINCE AGE 18, SMOKES 3-5 CIGARETTES DAILY. Past Drug Use History: None Reported - Past Family History Sister(s) Family Medical History: Cancer Medications and Allergies Home Medications Medication Instructions Recorded Confirmed Type Cholecalciferol [Vitamin D3] 5,000 unit PO DAILY 11/17/16 08/17/17 History Cyanocobalamin [Vitamin B-12] 500 mcg PO DAILY 11/17/16 08/17/17 History Fluticasone Propionate 1 spray EA NOSTRIL DAILY 11/17/16 08/17/17 History Gabapentin [Neurontin] 600 mg PO TID 11/17/16 08/17/17 History HYDROcodone/APAP 7.5-325MG [[place] 1 tab PO TID PRN 11/17/16 08/17/17 History 7.5-325] Naproxen [Naproxen] 500 mg PO BID 11/17/16 08/17/17 History Albuterol Inhaler [Ventolin Hfa 1 - 2 puff INHALATION RT-Q6H PRN 08/17/17 History Inhaler] Ginkgo Biloba [place] Extract [Ginkgo] 60 mg PO DAILY 08/17/17 08/17/17 History Venlafaxine HCl [Effexor] 75 mg PO BID 08/17/17 08/17/17 History Allergies Allergy/AdvReac Type Severity Reaction Status Date / Time Penicillins Allergy Itching Verified 08/17/17 14:46 Physical Exam Vitals: Vital Signs Temp Pulse Pulse Resp BP BP Pulse Ox 08/18/17 05:32 99.1 F 86 17 102/58 95 08/17/17 23:15 99.5 F 102 H 18 105/62 99 08/17/17 22:50 99.5 F 105 H 17 109/68 99 08/17/17 22:30 99.5 F 103 H 18 108/64 99 08/17/17 21:30 99.8 F H 103 H 17 93/60 97 08/17/17 21:20 99.8 F H 100 17 100/64 08/17/17 15:06 99.0 F 108 H 18 122/81 100 08/17/17 14:38 98.6 F 107 H 20 97/60 99 08/17/17 14:32 104 H 116/72 08/17/17 14:06 105 H 133/73 99 08/17/17 13:36 104 H 124/67 99 08/17/17 13:06 102 H 124/76 98 08/17/17 12:06 106 H 118/66 08/17/17 11:36 116 H 116/72 96 08/17/17 10:52 98.5 F 77 18 110/87 97 Intake and Output 08/17/17 08/18/17 08/18/17 22:59 06:59 14:59 Intake Total 148 310 Balance 148 310 Intake: Oral 148 Blood Product 0 310 Rc As-1 Unit 0 310 [id number] Other: # Voids 1 2 Weight 44.4 kg General appearance: The patient is alert, oriented, in no acute distress. HET: Head is normocephalic and atraumatic. Pupils are equal and reactive. Oropharynx is clear without lesions. Neck: Supple without lymphadenopathy. Trachea midline. Heart: S1 S2. Regular rate and rhythm. Lungs: No crackles or wheezes are heard. Abdomen: Soft, tenderness to the mid epigastrium radiating down midline, nondistended with bowel sounds. No peritoneal signs. No palpable organomegaly or masses. Extremities: Normal skin color and turgor. No cyanosis, rash, ulceration, clubbing, or edema. Radial and pedal pulses are 2/4 bilaterally. Neurological: No focal deficits. Strength and sensation are grossly intact. Results CBC & Chem 7: 08/18/17 07:41 08/17/17 12:18 Labs: Abnormal Lab Results - Last 24 Hours (Table) 08/17/17 08/17/17 08/17/17 Range/Units 12:18 12:18 12:18 WBC 15.7 H (3.8-10.6) k/uL RBC 3.51 L (3.80-5.40) m/uL Hgb 8.5 L (11.4-16.0) gm/dL Hct 28.2 L (34.0-46.0) % MCH 24.1 L (25.0-35.0) pg MCHC 30.0 L (31.0-37.0) g/dL RDW 16.1 H (11.5-15.5) % Neutrophils # 13.5 H (1.3-7.7) k/uL Sodium 146 H (137-145) mmol/L BUN 33 H (7-17) mg/dL Glucose 103 H (74-99) mg/dL Plasma Lactic Acid Hermilo (0.7-2.0) mmol/L Total Protein 5.9 L (6.3-8.2) g/dL Urine Ketones (Negative) Urine Blood (Negative) Ur Leukocyte Esterase (Negative) Urine Mucus (None) /hpf Stool Occult Blood Positive H (Negative) Crossmatch 08/17/17 08/17/17 08/17/17 Range/Units 12:18 16:50 19:00 WBC 14.4 H (3.8-10.6) k/uL RBC 2.84 L (3.80-5.40) m/uL Hgb 7.0 L* D (11.4-16.0) gm/dL Hct 23.4 L (34.0-46.0) % MCH 24.4 L (25.0-35.0) pg MCHC 29.7 L (31.0-37.0) g/dL RDW 16.1 H (11.5-15.5) % Neutrophils # 11.3 H (1.3-7.7) k/uL Sodium (137-145) mmol/L BUN (7-17) mg/dL Glucose (74-99) mg/dL Plasma Lactic Acid Hermilo (0.7-2.0) mmol/L Total Protein (6.3-8.2) g/dL Urine Ketones Trace H (Negative) Urine Blood Trace H (Negative) Ur Leukocyte Esterase Small H (Negative) Urine Mucus Rare H (None) /hpf Stool Occult Blood (Negative) Crossmatch See Detail 08/18/17 08/18/17 08/18/17 Range/Units 02:01 02:01 07:41 WBC 12.1 H 11.6 H (3.8-10.6) k/uL RBC 2.96 L 3.35 L (3.80-5.40) m/uL Hgb 7.7 L 8.5 L (11.4-16.0) gm/dL Hct 24.8 L 28.9 L (34.0-46.0) % MCH (25.0-35.0) pg MCHC 30.9 L 29.3 L (31.0-37.0) g/dL RDW 16.7 H 16.8 H (11.5-15.5) % Neutrophils # 9.2 H 9.3 H (1.3-7.7) k/uL Sodium (137-145) mmol/L BUN (7-17) mg/dL Glucose (74-99) mg/dL Plasma Lactic Acid Hermilo <0.5 L (0.7-2.0) mmol/L Total Protein (6.3-8.2) g/dL Urine Ketones (Negative) Urine Blood (Negative) Ur Leukocyte Esterase (Negative) Urine Mucus (None) /hpf Stool Occult Blood (Negative) Crossmatch Microbiology - Last 24 Hours (Table) 08/17/17 16:50 Urine Culture - Preliminary Urine,Clean Catch 08/17/17 12:18 Stool Culture - Preliminary Stool Assessment and Plan (1) Symptomatic anemia Narrative/Plan: 67-year-old female history of chronic NSAID usage admitted with a 2 week history of dark-colored black diarrhea with epigastric abdominal pain with anemia component of acute blood loss. Possible NSAID-induced peptic ulcer disease history of EGD October 2016 with evidence of nonbleeding gastric ulcerations. Current Visit: Yes Status: Acute Code(s): D64.9 - ANEMIA, UNSPECIFIED SNOMED Code(s): 298525758 (2) GI hemorrhage Current Visit: Yes Status: Acute Code(s): K92.2 - GASTROINTESTINAL HEMORRHAGE, UNSPECIFIED SNOMED Code(s): 16672004 (3) Abdominal pain Current Visit: No Status: Acute Code(s): R10.9 - UNSPECIFIED ABDOMINAL PAIN SNOMED Code(s): 17087977 (4) Acute diarrhea Current Visit: No Status: Acute Code(s): R19.7 - DIARRHEA, UNSPECIFIED SNOMED Code(s): 093311558 Plan: 1. EGD. 2. Protonix 40 mg IV daily. 3. CBC at noon. 4. Discontinue NSAIDs. 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 The patient has indicated understanding and acceptance of the risks and procedures discussed. Thank you for this kind referral and the opportunity to participate in the care of your patient. This consultation was discussed with Dr. Morales. The impression and plan of care have been directed as dictated.
[2017-08-18] MEDS ORDERED: RX INFO: IV CONTRAST WAS GIVEN 1 EACH MISC MISCELLANE PRN (11:06)
[2017-08-18 11:12] LABS: Iron Saturation 2.62 (12.00-45.00)
--- NOTE | 2017-08-18 12:13 | P.HPIM ---
History of Present Illness H&P Date: 08/18/17 Chief Complaint: Dark stool This is a 67-year-old female with past medical history noted below significant for chronic esophagitis and prior esophageal dilations presented to the emergency room with abdominal pain and black tarry stool. Patient said that her symptoms started initially 2 weeks ago with intermittent abdominal pain and nausea. Last night she started having dark stool. She described it as soon as black in color. No bright red blood noted. She presented to the emergency room and was found to have a positive Hemoccult test. Hemoglobin dropped overnight to 7.0 so patient received 1 unit of blood. She is hemodynamically stable. She does not drink alcohol. She takes Naprosyn twice daily on a regular basis. She was seen and evaluated by GI and is scheduled for an EGD later today. Review of Systems Review of system: 14 points review of systems were obtained and were negative except to what were mentioned in the HPI. Past Medical History Past Medical History: GERD/Reflux, Musculoskeletal Disorder, Osteoarthritis (OA) Additional Past Medical History / Comment(s): VERTIGO, SPINAL STENOSIS, MULT LEVELS, NECK & LOWER BACK; DDD. peptic ulcer History of Any Multi-Drug Resistant Organisms: None Reported Past Surgical History: Appendectomy, Orthopedic Surgery Additional Past Surgical History / Comment(s): EGD'S (2016) BARRIUM SWALLOW (2016) COLONOSCOPY (2015 [facility]). RECONSTRUCTION JAW. JESSICA BUNIONECTOMY. TENDON REPAIR RT HAND. Past Anesthesia/Blood Transfusion Reactions: No Reported Reaction Past Psychological History: No Psychological Hx Reported Smoking Status: Current every day smoker Past Alcohol Use History: None Reported Additional Past Alcohol Use History / Comment(s): SMOKER ON/OFF SINCE AGE 18, SMOKES 3-5 CIGARETTES DAILY. Past Drug Use History: None Reported - Past Family History Sister(s) Family Medical History: Cancer Medications and Allergies Home Medications Medication Instructions Recorded Confirmed Type Cholecalciferol [Vitamin D3] 5,000 unit PO DAILY 11/17/16 08/17/17 History Cyanocobalamin [Vitamin B-12] 500 mcg PO DAILY 11/17/16 08/17/17 History Fluticasone Propionate 1 spray EA NOSTRIL DAILY 11/17/16 08/17/17 History Gabapentin [Neurontin] 600 mg PO TID 11/17/16 08/17/17 History HYDROcodone/APAP 7.5-325MG [[place] 1 tab PO TID PRN 11/17/16 08/17/17 History 7.5-325] Naproxen [Naproxen] 500 mg PO BID 11/17/16 08/17/17 History Albuterol Inhaler [Ventolin Hfa 1 - 2 puff INHALATION RT-Q6H PRN 08/17/17 History Inhaler] Ginkgo Biloba [place] Extract [Ginkgo] 60 mg PO DAILY 08/17/17 08/17/17 History Venlafaxine HCl [Effexor] 75 mg PO BID 08/17/17 08/17/17 History Allergies Allergy/AdvReac Type Severity Reaction Status Date / Time Penicillins Allergy Itching Verified 08/17/17 14:46 Physical Exam Vitals: Vital Signs Temp Pulse Pulse Resp BP BP Pulse Ox 08/18/17 05:32 99.1 F 86 17 102/58 95 08/17/17 23:15 99.5 F 102 H 18 105/62 99 08/17/17 22:50 99.5 F 105 H 17 109/68 99 08/17/17 22:30 99.5 F 103 H 18 108/64 99 08/17/17 21:30 99.8 F H 103 H 17 93/60 97 08/17/17 21:20 99.8 F H 100 17 100/64 08/17/17 15:06 99.0 F 108 H 18 122/81 100 08/17/17 14:38 98.6 F 107 H 20 97/60 99 08/17/17 14:32 104 H 116/72 08/17/17 14:06 105 H 133/73 99 08/17/17 13:36 104 H 124/67 99 08/17/17 13:06 102 H 124/76 98 08/17/17 12:06 106 H 118/66 Intake and Output 08/17/17 08/18/17 08/18/17 22:59 06:59 14:59 Intake Total 148 310 Balance 148 310 Intake: Oral 148 Blood Product 0 310 Rc As-1 Unit 0 310 [id number] Other: Voiding Method Toilet # Voids 1 2 Weight 44.4 kg 44.4 kg General: The patient is awake and alert, in no distress Eye: there is normal conjunctiva bilaterally. Neck: The neck is supple, there is no JVD. Cardiovascular: Normal S1-S2, no S3-S4, no murmurs. Respiratory: Lungs clear to auscultation bilaterally Gastrointestinal: Abdomen is soft, nontender Musculoskeletal: There is no pedal edema. Neurological:. Speech is normal. Skin: Skin is warm and dry Results CBC & Chem 7: 08/18/17 07:41 08/17/17 12:18 Labs: Abnormal Lab Results - Last 24 Hours (Table) 08/17/17 08/17/17 08/17/17 Range/Units 12:18 12:18 12:18 WBC 15.7 H (3.8-10.6) k/uL RBC 3.51 L (3.80-5.40) m/uL Hgb 8.5 L (11.4-16.0) gm/dL Hct 28.2 L (34.0-46.0) % MCH 24.1 L (25.0-35.0) pg MCHC 30.0 L (31.0-37.0) g/dL RDW 16.1 H (11.5-15.5) % Neutrophils # 13.5 H (1.3-7.7) k/uL Sodium 146 H (137-145) mmol/L BUN 33 H (7-17) mg/dL Glucose 103 H (74-99) mg/dL Plasma Lactic Acid Hermilo (0.7-2.0) mmol/L Iron (50-170) ug/dL Iron Saturation (12.00-45.00) Total Protein 5.9 L (6.3-8.2) g/dL Vitamin B12 (200.0-944.0) pg/mL Urine Ketones (Negative) Urine Blood (Negative) Ur Leukocyte Esterase (Negative) Urine Mucus (None) /hpf Stool Occult Blood Positive H (Negative) Crossmatch 08/17/17 08/17/17 08/17/17 Range/Units 12:18 16:50 19:00 WBC 14.4 H (3.8-10.6) k/uL RBC 2.84 L (3.80-5.40) m/uL Hgb 7.0 L* D (11.4-16.0) gm/dL Hct 23.4 L (34.0-46.0) % MCH 24.4 L (25.0-35.0) pg MCHC 29.7 L (31.0-37.0) g/dL RDW 16.1 H (11.5-15.5) % Neutrophils # 11.3 H (1.3-7.7) k/uL Sodium (137-145) mmol/L BUN (7-17) mg/dL Glucose (74-99) mg/dL Plasma Lactic Acid Hermilo (0.7-2.0) mmol/L Iron (50-170) ug/dL Iron Saturation (12.00-45.00) Total Protein (6.3-8.2) g/dL Vitamin B12 (200.0-944.0) pg/mL Urine Ketones Trace H (Negative) Urine Blood Trace H (Negative) Ur Leukocyte Esterase Small H (Negative) Urine Mucus Rare H (None) /hpf Stool Occult Blood (Negative) Crossmatch See Detail 08/17/17 08/17/17 08/18/17 Range/Units 19:00 19:00 02:01 WBC 12.1 H (3.8-10.6) k/uL RBC 2.96 L (3.80-5.40) m/uL Hgb 7.7 L (11.4-16.0) gm/dL Hct 24.8 L (34.0-46.0) % MCH (25.0-35.0) pg MCHC 30.9 L (31.0-37.0) g/dL RDW 16.7 H (11.5-15.5) % Neutrophils # 9.2 H (1.3-7.7) k/uL Sodium (137-145) mmol/L BUN (7-17) mg/dL Glucose (74-99) mg/dL Plasma Lactic Acid Hermilo (0.7-2.0) mmol/L Iron 9 L (50-170) ug/dL Iron Saturation 2.62 L (12.00-45.00) Total Protein (6.3-8.2) g/dL Vitamin B12 1005.0 H (200.0-944.0) pg/mL Urine Ketones (Negative) Urine Blood (Negative) Ur Leukocyte Esterase (Negative) Urine Mucus (None) /hpf Stool Occult Blood (Negative) Crossmatch 08/18/17 08/18/17 Range/Units 02:01 07:41 WBC 11.6 H (3.8-10.6) k/uL RBC 3.35 L (3.80-5.40) m/uL Hgb 8.5 L (11.4-16.0) gm/dL Hct 28.9 L (34.0-46.0) % MCH (25.0-35.0) pg MCHC 29.3 L (31.0-37.0) g/dL RDW 16.8 H (11.5-15.5) % Neutrophils # 9.3 H (1.3-7.7) k/uL Sodium (137-145) mmol/L BUN (7-17) mg/dL Glucose (74-99) mg/dL Plasma Lactic Acid Hermilo <0.5 L (0.7-2.0) mmol/L Iron (50-170) ug/dL Iron Saturation (12.00-45.00) Total Protein (6.3-8.2) g/dL Vitamin B12 (200.0-944.0) pg/mL Urine Ketones (Negative) Urine Blood (Negative) Ur Leukocyte Esterase (Negative) Urine Mucus (None) /hpf Stool Occult Blood (Negative) Crossmatch Microbiology - Last 24 Hours (Table) 08/17/17 16:50 Urine Culture - Preliminary Urine,Clean Catch 08/17/17 12:18 Stool Culture - Preliminary Stool Thrombosis Risk Factor Assmnt - Choose All That Apply Any of the Below Risk Factors Present?: No Other Risk Factors: Yes Each Risk Factor Represents 2 Points: Age 61-74 years Thrombosis Risk Factor Assessment Total Risk Factor Score: 2 Thrombosis Risk Factor Assessment Level: Low Risk Assessment and Plan Assessment: 1. GI bleed, most likely upper. Seen and evaluated by GI. Plan for EGD today. Continue Protonix. 2. Acute blood loss anemia, status post 1 unit of PRBC transfusion. We will monitor CBC daily. No evidence of ongoing bleed at this time. 3. Generalized anxiety disorder maintained on Effexor Today, I reviewed her medication list and lab work results. Continue current regimen. I would continue to follow up on her closely.
--- NOTE | 2017-08-18 13:24 | P.CONS ---
History of Present Illness - Reason for Consult Consult date: 08/18/17 Anemia, 40+lb weight loss in 6 months Requesting physician: Js Saavedra - Chief Complaint Abdominal Pain, Diarrhea - History of Present Illness Mrs. Vega is a pleasant female patient who complained of dysphagia at the end of summer last year. 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 She has seen GI Dr. Morales in October of last year and underwent Colonoscopy and EGD - Resulting in chronic Gastritis and PPI was initiated. Since this time she has continued to have intermittent abdominal pain, dysphagia , and weight loss. She has had a total of greater than 40lb weight loss she admits to. Her pain is still present, but improved. She denies any current Nausea or vomiting. She has not had a bowel movement in 3 days. Last BMs dark and tarry Review of Systems A 14 point review of systems assessed and completed and all negative except HPI. Past Medical History Past Medical History: GERD/Reflux, Musculoskeletal Disorder, Osteoarthritis (OA) Additional Past Medical History / Comment(s): VERTIGO, SPINAL STENOSIS, MULT LEVELS, NECK & LOWER BACK; DDD. peptic ulcer History of Any Multi-Drug Resistant Organisms: None Reported Past Surgical History: Appendectomy, Orthopedic Surgery Additional Past Surgical History / Comment(s): EGD'S (2016) BARRIUM SWALLOW (2016) COLONOSCOPY (2015 [facility]). RECONSTRUCTION JAW. JESSICA BUNIONECTOMY. TENDON REPAIR RT HAND. Past Anesthesia/Blood Transfusion Reactions: No Reported Reaction Past Psychological History: No Psychological Hx Reported Smoking Status: Current every day smoker Past Alcohol Use History: None Reported Additional Past Alcohol Use History / Comment(s): SMOKER ON/OFF SINCE AGE 18, SMOKES 3-5 CIGARETTES DAILY. Past Drug Use History: None Reported - Past Family History Sister(s) Family Medical History: Cancer Medications and Allergies Home Medications Medication Instructions Recorded Confirmed Type Cholecalciferol [Vitamin D3] 5,000 unit PO DAILY 11/17/16 08/17/17 History Cyanocobalamin [Vitamin B-12] 500 mcg PO DAILY 11/17/16 08/17/17 History Fluticasone Propionate 1 spray EA NOSTRIL DAILY 11/17/16 08/17/17 History Gabapentin [Neurontin] 600 mg PO TID 11/17/16 08/17/17 History HYDROcodone/APAP 7.5-325MG [Cades 1 tab PO TID PRN 11/17/16 08/17/17 History 7.5-325] Naproxen [Naproxen] 500 mg PO BID 11/17/16 08/17/17 History Albuterol Inhaler [Ventolin Hfa 1 - 2 puff INHALATION RT-Q6H PRN 08/17/17 History Inhaler] Ginkgo Biloba [place] Extract [Ginkgo] 60 mg PO DAILY 08/17/17 08/17/17 History Venlafaxine HCl [Effexor] 75 mg PO BID 08/17/17 08/17/17 History Allergies Allergy/AdvReac Type Severity Reaction Status Date / Time Penicillins Allergy Itching Verified 08/17/17 14:46 Physical Exam Vitals: Vital Signs Temp Pulse Pulse Resp BP BP Pulse Ox 08/18/17 05:32 99.1 F 86 17 102/58 95 08/17/17 23:15 99.5 F 102 H 18 105/62 99 08/17/17 22:50 99.5 F 105 H 17 109/68 99 08/17/17 22:30 99.5 F 103 H 18 108/64 99 08/17/17 21:30 99.8 F H 103 H 17 93/60 97 08/17/17 21:20 99.8 F H 100 17 100/64 08/17/17 15:06 99.0 F 108 H 18 122/81 100 08/17/17 14:38 98.6 F 107 H 20 97/60 99 08/17/17 14:32 104 H 116/72 08/17/17 14:06 105 H 133/73 99 08/17/17 13:36 104 H 124/67 99 08/17/17 13:06 102 H 124/76 98 08/17/17 12:06 106 H 118/66 08/17/17 11:36 116 H 116/72 96 Intake and Output 08/17/17 08/18/17 08/18/17 22:59 06:59 14:59 Intake Total 148 310 Balance 148 310 Intake: Oral 148 Blood Product 0 310 Rc As-1 Unit 0 310 [id number] Other: Voiding Method Toilet # Voids 1 2 Weight 44.4 kg 44.4 kg - Constitutional General appearance: no acute distress, thin - EENT Eyes: EOMI, PERRLA, dentition normal ENT: NA/AT, normal oropharynx - Neck Neck: normal ROM - Respiratory Respiratory: left: wheezing (expiratory cleared cough), bilateral: CTA (No increased effort) - Cardiovascular Rhythm: regular Heart sounds: normal: S1, S2 - Gastrointestinal General gastrointestinal: normal bowel sounds, soft, tenderness - Integumentary Integumentary: pale - Neurologic Neurologic: CNII-XII intact - Musculoskeletal Musculoskeletal: generalized weakness, strength equal bilaterally - Psychiatric Psychiatric: A&O x's 3, appropriate affect, intact judgment & insight Results CBC & Chem 7: 08/18/17 07:41 08/17/17 12:18 Labs: Abnormal Lab Results - Last 24 Hours (Table) 08/17/17 08/17/17 08/17/17 Range/Units 12:18 12:18 12:18 WBC 15.7 H (3.8-10.6) k/uL RBC 3.51 L (3.80-5.40) m/uL Hgb 8.5 L (11.4-16.0) gm/dL Hct 28.2 L (34.0-46.0) % MCH 24.1 L (25.0-35.0) pg MCHC 30.0 L (31.0-37.0) g/dL RDW 16.1 H (11.5-15.5) % Neutrophils # 13.5 H (1.3-7.7) k/uL Sodium 146 H (137-145) mmol/L BUN 33 H (7-17) mg/dL Glucose 103 H (74-99) mg/dL Plasma Lactic Acid Hermilo (0.7-2.0) mmol/L Total Protein 5.9 L (6.3-8.2) g/dL Urine Ketones (Negative) Urine Blood (Negative) Ur Leukocyte Esterase (Negative) Urine Mucus (None) /hpf Stool Occult Blood Positive H (Negative) Crossmatch 08/17/17 08/17/17 08/17/17 Range/Units 12:18 16:50 19:00 WBC 14.4 H (3.8-10.6) k/uL RBC 2.84 L (3.80-5.40) m/uL Hgb 7.0 L* D (11.4-16.0) gm/dL Hct 23.4 L (34.0-46.0) % MCH 24.4 L (25.0-35.0) pg MCHC 29.7 L (31.0-37.0) g/dL RDW 16.1 H (11.5-15.5) % Neutrophils # 11.3 H (1.3-7.7) k/uL Sodium (137-145) mmol/L BUN (7-17) mg/dL Glucose (74-99) mg/dL Plasma Lactic Acid Hermilo (0.7-2.0) mmol/L Total Protein (6.3-8.2) g/dL Urine Ketones Trace H (Negative) Urine Blood Trace H (Negative) Ur Leukocyte Esterase Small H (Negative) Urine Mucus Rare H (None) /hpf Stool Occult Blood (Negative) Crossmatch See Detail 08/18/17 08/18/17 08/18/17 Range/Units 02:01 02:01 07:41 WBC 12.1 H 11.6 H (3.8-10.6) k/uL RBC 2.96 L 3.35 L (3.80-5.40) m/uL Hgb 7.7 L 8.5 L (11.4-16.0) gm/dL Hct 24.8 L 28.9 L (34.0-46.0) % MCH (25.0-35.0) pg MCHC 30.9 L 29.3 L (31.0-37.0) g/dL RDW 16.7 H 16.8 H (11.5-15.5) % Neutrophils # 9.2 H 9.3 H (1.3-7.7) k/uL Sodium (137-145) mmol/L BUN (7-17) mg/dL Glucose (74-99) mg/dL Plasma Lactic Acid Hermilo <0.5 L (0.7-2.0) mmol/L Total Protein (6.3-8.2) g/dL Urine Ketones (Negative) Urine Blood (Negative) Ur Leukocyte Esterase (Negative) Urine Mucus (None) /hpf Stool Occult Blood (Negative) Crossmatch Microbiology - Last 24 Hours (Table) 08/17/17 16:50 Urine Culture - Preliminary Urine,Clean Catch 08/17/17 12:18 Stool Culture - Preliminary Stool CT scan - abdomen: report reviewed CT scan - chest: report reviewed CT scan - pelvis: report reviewed Assessment and Plan Plan: Assessment and Recommendations: 1. Persistent Abdominal Pain: - GI Following - Endoscopy planned for today - Hx: Gastritis 2. Normocytic, Hypochromic Anemia: Secondary to acute GI Blood Loss - Iron Studies, and anemia work-up - Iron Low, IV Iron ordered x5 days 3. Diarrhea, Dark Black Stools - Stool For OB Positive 4. Unintended weight Loss greater than 40lbs in 6 months - Factor of psychological distress, many home stressors - Factor of abdominal pain, dysphagia, and unknown etiology - Work-up to include CT chest 5. Dysphagia - - No definitive etiology identified - EGD today to assess 6. Tobacco Abuse. - Cessation Emphasized Physician Attestation: I have completed the full history and physical of this patient and agree with above dictation, dictated as a scribe
--- NOTE | 2017-08-18 14:02 | CT ---
EXAMINATION TYPE: CT chest w con DATE OF EXAM: 08/18/2017 COMPARISON: CT abdomen pelvis from 2 days ago and older studies HISTORY: 40lb weight loss, shortness of breath and smoking abuse. CT DLP: 85 mGycm Automated exposure control for dose reduction was used. CONTRAST: CT scan of the chest is performed with IV Contrast, patient injected with 100 mL of Isovue M300. FINDINGS: LUNGS: There is mild biapical pleural/parenchymal scarring. There is additional right upper lobe line ar scarring seen best coronal image 31 anteriorly. There is some bibasilar linear scarring and/or ate lectasis near diaphragms. No suspicious consolidation or groundglass opacity is seen. No pleural effu fredrick or pneumothorax is noted. Tracheobronchial tree is patent. MEDIASTINUM: There are no greater than 1 cm hilar or mediastinal lymph nodes. No cardiomegaly or pe ricardial effusion is seen. The mid esophagus is dilated with debris near carinal level, no obvious mass or stricture identified distal to this, correlate for underlying achalasia or esophageal dysmoti lity. Findings correlate with esophagram report February 23, 2017. OTHER: There are a few small thin-walled cysts in the right hepatic dome. Visualized portion of stom ach and small bowel left upper quadrant shows mild wall thickening. High positioned left kidney is in cidentally redemonstrated. There is stimulator device in the posterior subcutaneous tissue of the upp er thorax partially imaged. Some dystrophic calcifications in the right breast are noted. IMPRESSION: No suspicious mass or adenopathy identified. Scattered scarring, no suspicious acute pul monary process.
[2017-08-18] MEDS ORDERED: PROPOFOL 10 MG/ML 20 ML VIAL IV ONE (14:55)
[2017-08-18] MEDS ORDERED: LIDOCAINE 1% INJ 10MG/ML (20 ML MDV) ONE (14:55)
[2017-08-18] MEDS ORDERED: fentaNYL (PF) 50 MCG/ML 2 ML AMP ONE (14:55)
[2017-08-18] MEDS ORDERED: IV FLUID CONTINUATION 950 ML IV ONE (14:56)
--- NOTE | 2017-08-18 15:21 | P.PCN ---
Date of Procedure: 08/18/17 Procedure(s) Performed: Procedure: Esophagogastroduodenoscopy and biopsy. Preoperative diagnosis: Abdominal pain and black diarrhea. Postoperative diagnosis: 1. Small sliding hiatal hernia with no obvious esophagitis or complicated reflux disease. 2. Antral ulcer with stigmata of prior bleeding but no obvious bleeding at the time of this exam. 3. Biopsies obtained from the antral ulcer. Preparation and sedation: Was provided by anesthesia. Brief clinical history: The patient is a 67-year-old female past medical history of dysphagia, chronic esophagitis, esophageal dilations, GERD, admitted with acute abdominal pain with multiple daily episodes of black-colored diarrhea 2 weeks intermittent nausea no emesis. Abdominal pain is located mostly in the midepigastric region radiating down midline. She takes Naprosyn 500 mg twice daily for the last 2-3 years. Admission hemoglobin 8.5 decreased to 7.0. Received 1 unit of blood. Current hemoglobin 8.5. MCV 80. Platelets 388. INR 1.1. BUN 33. Creatinine 0.7. Stool occult blood positive. Stool lactoferrin negative. Giardia negative. Hemoglobin April 2014 was 12.7. No EtOH, aspirin products, or additional antiplatelet or NSAID usage except Naprosyn 500 mg twice daily. Endoscopic history: EGD October 2016 for evaluation of dysphagia and weight loss with no evidence of esophagitis or, care reflux disease. Antral gastritis with multiple ulcers but no bleeding or gastric outlet obstruction. Colonoscopy 2016 to her memory unremarkable. KUB nonobstructive bowel gas pattern. CT abdomen and pelvis 2 days ago reported nonspecific abdominal loops of bowel Ross for mild ileus. Exam limited due to lack of oral contrast and bowel fat. Procedure: With the patient on her left lateral decubitus position and after informed consent and adequate sedation, I passed the Olympus-GIF 160 video upper endoscope through the cricopharyngeus down the esophagus. GE junction was around 42-43 cm from the incisors and there was a small sliding hiatal hernia but no obvious esophagitis or complicated reflux disease. The endoscope was then passed into the stomach which was insufflated with air and inspected in detail including the retroflex view in the cardia. There was a large antral prepyloric ulcer measuring around 3 cm in greatest dimension with dark exudate partially covering its base but there was no dark protuberances, clots or oozing of blood. Pyloric channel, duodenal bulb, post bulbar area and descending duodenum appeared within normal limits. There was no active bleeding at the time of this exam. I obtained biopsies from the ulcersh then the endoscope was withdrawn. The patient tolerated the procedure well. Plan: I summarized the findings to the patient. Would keep on clear liquid diet and continue PPI. Further plans based on her course.
[2017-08-18] MEDS: SODIUM FERRIC GLUCONAT-SUCROSE 125 MG in SODIUM CHLORIDE 0.9% 100 ML IVPB SCH (16:31)
[2017-08-19] MEDS: SODIUM CHLORIDE 0.9% 1,000 ML IV SCH (04:53)
[2017-08-19] MEDS: PANTOPRAZOLE 40 MG/10 ML VIAL IV SCH (07:35)
[2017-08-19] MEDS ORDERED: MORPHINE SULFATE 2 MG/ML SYRINGE IV PRN (08:52)
[2017-08-19] MEDS: SODIUM FERRIC GLUCONAT-SUCROSE 125 MG in SODIUM CHLORIDE 0.9% 100 ML IVPB SCH (09:07)
[2017-08-19] MEDS ORDERED: HYDROcodone/APAP 7.5-325MG 1 EACH TAB PO PRN (12:47)
[2017-08-19 12:50] LABS: Anisocytosis Slight; Basophils % (A) 0 %; Eosinophils # (A) 0.1 k/uL (0-0.7); Eosinophils % (A) 3 %; HCT 25.6 % (34.0-46.0); HGB 8.3 gm/dL (11.4-16.0); Lymphocytes # (A) 0.7 k/uL (1.0-4.8); Lymphocytes % (A) 22 %; MCH 26.3 pg (25.0-35.0); MCHC 32.3 g/dL (31.0-37.0); MCV 81.6 fL (80.0-100.0); Mean Platelet Volume 8.2; Monocytes # (A) 0.2 k/uL (0-1.0); Monocytes % (A) 5 %; Neutrophils # (A) 2.4 k/uL (1.3-7.7); Neutrophils % (A) 70 %; Platelet Count 279 k/uL (150-450); RBC 3.14 m/uL (3.80-5.40); RDW 17.2 % (11.5-15.5); WBC 3.4 k/uL (3.8-10.6)
--- NOTE | 2017-08-19 13:30 | P.DS ---
Providers Date of admission: 08/18/17 18:33 Expected date of discharge: 08/19/17 Attending physician: Julio Leal Consults: 08/17/17 14:05 Consult Physician Urgent Consulting Provider: Blair Morales Consult Reason/Comments: gi hemorrhage Do you want consulting provider notified?: Yes 08/17/17 14:23 Consult Physician Urgent Consulting Provider: Rodriguez Goodrich Consult Reason/Comments: anemia Do you want consulting provider notified?: Yes Primary care physician: Vicki Styles [facility] Course: 1. GI bleed: Patient was seen and evaluated by gastroenterology. She underwent an EGD showing evidence of small hiatal hernia with no obvious esophagitis. There is an antral ulcer with stigmata of prior bleeding and no obvious bleeding at the time of the scope. Biopsy obtained, follow-up in the office for pathology. Patient will be started on Protonix. She was counseled extensively to avoid NSAIDs. She'll be started on Protonix daily. No evidence of further GI bleed. 2. Acute blood loss anemia, status post 1 unit of PRBC transfusion. Hemoglobin stabilized. Hemoglobin 8.3 on discharge. 3. Generalized anxiety disorder maintained on Effexor Plan - Discharge Summary Discharge Rx Participant: Yes New Discharge Prescriptions: New Pantoprazole Sodium [Protonix] 40 mg PO -BRKFST #30 tablet. Continue Cyanocobalamin [Vitamin B-12] 500 mcg PO DAILY Gabapentin [Neurontin] 600 mg PO TID Fluticasone Propionate 1 spray EA NOSTRIL DAILY Cholecalciferol [Vitamin D3] 5,000 unit PO DAILY HYDROcodone/APAP 7.5-325MG [[place] 7.5-325] 1 tab PO TID PRN PRN Reason: Pain Albuterol Inhaler [Ventolin Hfa Inhaler] 1 - 2 puff INHALATION RT-Q6H PRN PRN Reason: Shortness Of Breath Ginkgo Biloba [place] Extract [Ginkgo] 60 mg PO DAILY Venlafaxine HCl [Effexor] 75 mg PO BID Discontinued Naproxen [Naproxen] 500 mg PO BID Discharge Medication List Cholecalciferol [Vitamin D3] 5,000 unit PO DAILY 11/17/16 [History] Cyanocobalamin [Vitamin B-12] 500 mcg PO DAILY 11/17/16 [History] Fluticasone Propionate 1 spray EA NOSTRIL DAILY 11/17/16 [History] Gabapentin [Neurontin] 600 mg PO TID 11/17/16 [History] HYDROcodone/APAP 7.5-325MG [[place] 7.5-325] 1 tab PO TID PRN 11/17/16 [History] Albuterol Inhaler [Ventolin Hfa Inhaler] 1 - 2 puff INHALATION RT-Q6H PRN [History] Ginkgo Biloba [place] Extract [Ginkgo] 60 mg PO DAILY 08/17/17 [History] Venlafaxine HCl [Effexor] 75 mg PO BID 08/17/17 [History] Pantoprazole Sodium [Protonix] 40 mg PO AC-BRKFST #30 tablet. 08/19/17 [Rx] Follow up Appointment(s)/Referral(s): Blair Morales MD [STAFF PHYSICIAN] - 3 Weeks Vicki Styles MD [Primary Care Provider] - 3 Days Activity/Diet/Wound Care/Special Instructions: NO smoking, cessation information provided. Discharge Disposition: HOME SELF-CARE
[2017-08-19 14:13] VITALS: BP 116/74; PULSE 98; RESP 16; TEMP 99.4
[2017-08-19] MEDS ORDERED: GABAPENTIN 300 MG CAP PO SCH (16:00)
[2017-08-19] MEDS ORDERED: VENLAFAXINE HCL 75 MG TAB PO SCH (21:00)
[2017-08-20] MEDS ORDERED: FLUTICASONE 50MCG/SPRAY NASAL 16GM EA NOSTRIL SCH (09:00)
== END 2017-08-19 14:43 | disposition home or self-care (01) | DRG 378 ==
LOC: EC 10:46 → INTOOBSV 14:05 → 4MS4W 14:05 → OBSVTOIN 08-18 18:33
PROVIDERS: ADMIT Internal Medicine; ATTEND Internal Medicine
PROC: 30233N1 Transfusion of Nonautologous Red Blood Cells into Peripheral Vein, Percutaneous Approach (ICD-10-PCS; 2017-08-18)
PROC: 0DB78ZX Excision of Stomach, Pylorus, Via Natural or Artificial Opening Endoscopic, Diagnostic (ICD-10-PCS; principal; 2017-08-18 09:05)
DX: K25.4 Chronic or unspecified gastric ulcer with hemorrhage (principal); D62 Acute posthemorrhagic anemia; K56.7 Ileus, unspecified; Z68.1 Body mass index [BMI] 19.9 or less, adult; F17.200 Nicotine dependence, unspecified, uncomplicated; F41.1 Generalized anxiety disorder; K21.9 Gastro-esophageal reflux disease without esophagitis; K29.60 Other gastritis without bleeding; K44.9 Diaphragmatic hernia without obstruction or gangrene; R13.10 Dysphagia, unspecified; Z87.11 Personal history of peptic ulcer disease; Z71.6 Tobacco abuse counseling; F15.10 Other stimulant abuse, uncomplicated; M48.00 Spinal stenosis, site unspecified; R63.4 Abnormal weight loss; M19.90 Unspecified osteoarthritis, unspecified site; R19.7 Diarrhea, unspecified; T39.315A Adverse effect of propionic acid derivatives, initial encounter
CPT/HCPCS: 36415; 43239; 71260; 74018; 74177; 80053; 81001; 82150; 82272; 82607; 82728; 83540; 83550; 83605; 83630; 83690; 83921; 85025; 85045; 85610; 85730; 86850; 86900; 86901; 86920; 87045; 87046; 87086; 87328; 87329; 88305; 88342; 93005; 96361; 96372; 96374; 96375; 99284; 99285

== ENCOUNTER → 2021-03-12 | Outpatient (CLI) | payer MEDICARE, OTHER ==
--- NOTE | 2021-03-12 13:51 | XR ---
EXAMINATION TYPE: XR Hip Complete RT DATE OF EXAM: 03/12/2021 COMPARISON: NONE HISTORY: Pain TECHNIQUE: 2 views submitted FINDINGS: There is no evidence of erosive change or acute fracture. There is a moderate to severe narrowing of the joint space with hypertrophic change of the acetabulum. Correlate for femoral acetabular impingem ent. Vascular calcifications noted.. IMPRESSION: 1. Moderate to severe arthropathy correlate for femoral acetabular impingement.
--- NOTE | 2021-03-12 13:52 | XR ---
EXAMINATION TYPE: XR knee limited LT DATE OF EXAM: 03/12/2021 COMPARISON: NONE HISTORY: Pain TECHNIQUE: Two views are submitted. FINDINGS: Severe narrowing of the medial compartment of the knee joint with hypertrophic spurring. Severe narro wing the patellofemoral spurring. No acute fracture. No dislocation.. Osseous structures are intact. No acute fracture seen. IMPRESSION: 1. Severe osteoarthritis. Osteochondritis dissecans of the medial femoral condyle in the differential diagnosis consider follow-up MRI
== END | disposition home or self-care (01) ==
LOC: RADXRMAIN 13:25
PROVIDERS: ATTEND Nurse Practitioner Family
DX: M17.12 Unilateral primary osteoarthritis, left knee (principal); M16.11 Unilateral primary osteoarthritis, right hip
CPT/HCPCS: 73502

== ENCOUNTER → 2023-01-20 | Outpatient (CLI) | payer MEDICARE ==
--- NOTE | 2023-01-20 13:27 | XR ---
EXAMINATION TYPE: XR chest 2V DATE OF EXAM: 01/20/2023 COMPARISON: NONE TECHNIQUE: PA and lateral views submitted. HISTORY: Cough FINDINGS: The lungs are clear and there is no pneumothorax, pleural effusion, or focal pneumonia. Heart size normal and no overt failure. . Emphysematous changes are seen. Linear density extending from the righ t hilum is difficult scarring or atelectasis. Scoliosis with multilevel degenerative disc disease. IMPRESSION: 1. Suspected chronic scarring or atelectasis involving the right upper lobe with underlying COPD..
== END | disposition home or self-care (01) ==
LOC: RADXRMAIN 12:40
PROVIDERS: ATTEND Family Medicine
DX: J44.9 Chronic obstructive pulmonary disease, unspecified (principal); R06.02 Shortness of breath
CPT/HCPCS: 71046

== ENCOUNTER → 2023-04-03 | Outpatient (CLI) | payer MEDICARE ==
--- NOTE | 2023-04-07 09:26 | MM ---
Reason for Exam: Screening (asymptomatic). Last mammogram was performed 10 year(s) and 5 month(s) ago. Patient History: Menarche at age 15. First Full-Term at age 31. Postmenopausal. Risk Values: Florina 5 year model risk: 1.9%. NCI Lifetime model risk: 5.6%. Prior Study Comparison: 01/02/2009 Screening Mammogram, Unknown. 11/08/2012 Bilateral Screening Mammogram, [facility]. Tissue Density: The breast tissue is heterogeneously dense. This may lower the sensitivity of mammography. Findings: Analyzed By CAD. There is no suspicious group of microcalcifications or new suspicious mass. Benign-appearing calcifications bilaterally. Overall Assessment: Negative, BI-RAD 1 Management: Screening Mammogram of both breasts in [address] [facility] will attempt to contact patient to return for supplemental views and ultrasound if indicated. Patient should continue monthly self-breast exams. A clinical breast exam by your physician is recommended on an annual basis. This exam should not preclude additional follow-up of suspicious palpable abnormalities. Note on Florina scores and lifetime risk: 1. A Florina score greater than 3% is considered moderate risk. If this is the case, consider specialist referral to assess eligibility for a risk reducing agent. 2. If overall lifetime risk for the development of breast cancer is 20% or higher, the patient may qualify for future screening with alternating mammogram and breast MRI. Electronically signed and approved by: Kwasi Nelson DO
== END | disposition home or self-care (01) ==
LOC: RADMAMWWP 14:59
PROVIDERS: ATTEND Family Medicine
DX: Z12.31 Encounter for screening mammogram for malignant neoplasm of breast (principal); Z78.0 Asymptomatic menopausal state
CPT/HCPCS: 77063; 77067

== ENCOUNTER 2023-04-17 09:56 | Day surgery (SDC) | payer MEDICARE, OTHER ==
[~2023-04-17 09:56] MED LIST changes: +LIDOCAINE 1% (10MG/ML) FOR IV START INTRADERMA PRN
[2023-04-17 11:20] VITALS: TEMP 97
[2023-04-17] MEDS ORDERED: PROPOFOL 10 MG/ML 20 ML VIAL IV ONE (12:04)
--- NOTE | 2023-04-17 12:24 | P.PCN ---
Date of Procedure: 04/17/23 Procedure(s) Performed: BRIEF HISTORY: Patient is a 72-year-old pleasant white female scheduled for an elective colonoscopy as a part of screening for colon cancer. Last colonoscopy was 11 years ago. PROCEDURE PERFORMED: Colonoscopy. PREOPERATIVE DIAGNOSIS: Screening for colon cancer. IV sedation per Anesthesia. PROCEDURE: After informed consent was obtained, the patient, was brought into the endoscopy unit. IV sedation was administered by Anesthesia under continuous monitoring. Digital rectal examination was normal. Initially the Olympus CF-160 flexible video colonoscope was then inserted in the rectum, gradually advanced into the cecum without any difficulty. Careful examination was performed as the scope was gradually being withdrawn. Ileocecal valve and the appendiceal orifice were visualized and appeared normal. Prep was excellent. Mucosa of the cecum, ascending colon, transverse colon, descending colon, sigmoid colon, and rectum appeared normal. Sigmoid diverticulosis. Retroflexion was performed in the rectum and no lesions were seen. The patient tolerated the procedure well. IMPRESSION: Normal-appearing colon from rectum to cecum with no evidence of colorectal neoplasia . Sigmoid diverticulosis. RECOMMENDATIONS: Findings of this examination were discussed with the patient no family. She was advised to have a repeat screening colonoscopy in 10 years..
[2023-04-17 13:07] VITALS: BP 145/88; PULSE 94; RESP 16
== END 2023-04-17 13:09 | disposition home or self-care (01) ==
LOC: ORWHC2ENDO 09:56
PROVIDERS: ATTEND Internal Medicine Gastroenterology
DX: Z12.11 Encounter for screening for malignant neoplasm of colon (principal); K57.30 Diverticulosis of large intestine without perforation or abscess without bleeding; J44.9 Chronic obstructive pulmonary disease, unspecified; F41.9 Anxiety disorder, unspecified; Z87.891 Personal history of nicotine dependence; Z88.0 Allergy status to penicillin
CPT/HCPCS: J2704; G0121

== ENCOUNTER → 2024-02-08 | Outpatient (CLI) | payer OTHER ==
--- NOTE | 2024-02-08 13:32 | CTL ---
EXAMINATION TYPE: CT Low Dose Lung DATE OF EXAM ORDERED: 02/08/2024 COMPARISON: CT chest 08/18/2017 CLINICAL INDICATION: Female, 73 years old with history of Z12.2 ENCNTR SCREEN FOR MALIGNANT NEOPLASM OF RESP; [facility], FORMER TOBACCO USER, Lung cancer screening, History of Smoking/tobacco use. TECHNIQUE: Low dose computed tomography scan was performed through the chest at 1 mm thick sections a nd reconstructed images in multiple planes at 1 mm and [address] DLP: 53.[address] CTDI: 1.3 mGy Automated exposure control for dose reduction was used. CT DIAGNOSTIC QUALITY: Satisfactory FINDINGS: Nodules: No clinically suspicious pulmonary nodule. LUNGS: COPD: Severity: None Fibrosis: Severity: Development of right anterior upper lobe bronchiectasis with reticular scarring w ith volume loss. Lymph nodes: None Other findings: None RIGHT PLEURAL SPACE: Effusion: None Calcification: None Thickening: None Pneumothorax: None LEFT PLEURAL SPACE: Effusion: None Calcification: None Thickening: None Pneumothorax: None HEART: Heart Size: Normal Coronary Calcification: Small Pericardial Effusion: None OTHER FINDINGS: Upper abdomen: Hepatic 1.7 cm cyst redemonstrated. Bony thorax: S-shaped scoliotic curvature of the thoracolumbar spine. Multilevel degenerative disc di sease. Supraclavicular region: Partial visualization of anterior and cervical fusion hardware. Other: None IMPRESSION: 1. No clinically significant pulmonary nodule. 2. Development of right anterior right upper lobe bronchiectasis with scarring consistent with some pulmonary fibrotic changes. CT LUNG RAD AND CT CHEST RECOMMENDATION: Lung-Rad 1 Negative: Continue annual screening with LDCT in 12 months. S Modifier (other clinically significant findings): None [facility], , 02/08/2024 1:30 PM
== END | disposition home or self-care (01) ==
LOC: RADCTMAIN 11:29
PROVIDERS: ATTEND Internal Medicine Hospice and Palliative Medicine
DX: Z12.2 Encounter for screening for malignant neoplasm of respiratory organs (principal); J47.9 Bronchiectasis, uncomplicated; J98.4 Other disorders of lung; Z87.891 Personal history of nicotine dependence
CPT/HCPCS: 71271

== ENCOUNTER 2024-04-13 10:21 | Day surgery (SDC) | payer OTHER ==
[2024-04-12 11:14] VITALS: BMI 19.0
[~2024-04-13 10:21] MED LIST changes: -LACTATED RINGERS 1,000 ML IV SCH
[2024-04-13] MEDS: LACTATED RINGERS 1,000 ML IV ONE (10:44)
[2024-04-13 10:56] VITALS: TEMP 97
[2024-04-13] MEDS: LACTATED RINGERS 1,000 ML IV SCH (10:56)
[2024-04-13] MEDS ORDERED: PROPOFOL 10 MG/ML 20 ML VIAL IV ONE (11:18)
[2024-04-13] MEDS ORDERED: LIDOCAINE 1% INJ 10MG/ML (20 ML MDV) ONE (11:18)
--- NOTE | 2024-04-13 11:32 | P.PCN ---
Date of Procedure: 04/13/24 Procedure(s) Performed: BRIEF HISTORY: Patient is a 73-year-old, pleasant, white female scheduled for an upper endoscopy as a part of follow-up of gastric ulcer that was diagnosed in October 2023 when she presented with abdominal pain nausea vomiting. She had an upper endoscopy done at [facility] and was noted to have a 1 cm antral ulcer in the prepyloric area. She has been on Prilosec 20 mg daily since then. She denies any epigastric pain or nausea vomiting now. PROCEDURE PERFORMED: Esophagogastroduodenoscopy with biopsy. PREOPERATIVE DIAGNOSIS: Follow-up gastric ulcer diagnosed in October 2023. IV sedation per anesthesia. PROCEDURE: After informed consent was obtained, the patient was brought into the endoscopy unit. IV sedation was administered by Anesthesia under continuous monitoring. Initially the Olympus GIF-140 video endoscope was inserted into the mouth. Esophagus intubated without any difficulty. It was gradually advanced into the stomach and duodenum and carefully examined. The bulb and the second part of the duodenum appeared normal. The scope at this time was withdrawn to the stomach, adequately insufflated with air, and upon careful examination, mucosa of the antrum, had a 5 mm antral ulcer in the prepyloric area that was biopsied. There was mild antral gastritis noted. Body, cardia and the fundus appeared normal. The scope was then withdrawn into the esophagus. The GE junction was located at 39 cm from the incisors. The esophagus appeared normal. There were no erosions or ulcerations seen and the patient tolerated the procedure well. IMPRESSION: 1. 5 mm antral ulcer in the prepyloric area status post biopsy. 2. Mild antral gastritis. RECOMMENDATIONS: The findings of this examination were discussed with the patient as well as her family. She was advised to follow with the biopsy results. Continue with prednisone 20 mg daily and avoid NSAIDs..
[2024-04-13 12:13] VITALS: BP 120/69; PULSE 69; RESP 17
== END 2024-04-13 12:30 | disposition home or self-care (01) ==
LOC: ORWHC2ENDO 10:21
PROVIDERS: ATTEND Internal Medicine Gastroenterology
DX: K29.50 Unspecified chronic gastritis without bleeding (principal); K25.3 Acute gastric ulcer without hemorrhage or perforation; M19.90 Unspecified osteoarthritis, unspecified site; K21.9 Gastro-esophageal reflux disease without esophagitis; F32.A Depression, unspecified; F12.90 Cannabis use, unspecified, uncomplicated; Z88.0 Allergy status to penicillin; Z79.899 Other long term (current) drug therapy; Z90.49 Acquired absence of other specified parts of digestive tract; Z98.890 Other specified postprocedural states
CPT/HCPCS: 88305; 43239; J2003; J2704